=== PATIENT | female | born 1955 | race Caucasian/White ===

== ENCOUNTER → 2017-02-11 | Outpatient (CLI) | payer OTHER ==
--- NOTE | 2017-02-11 14:16 | KCIC ---
MRI lumbar spine without contrast 02/11/2017 INDICATION: Back pain COMPARISON: None available TECHNIQUE: Multiplanar, multisequence MR imaging of the lumbar spine is provided. FINDINGS: Alignment of the lumbar spine is normal. There is disc height loss at all levels of the lumbar spine. Modic type II endplate degenerative changes are identified at L2-L3, L3-L4 and L4-L5. Schmorl's nodes are identified involving the inferior endplate of T12, superior endplate of L1, superior and inferior endplate of L2, and superior endplates of L4 and L5. There is disc desiccation at all levels sparing L5-S1. Conus terminates at T12-L1. Distal cord signal is normal in all sequences. Visualized portions of the retroperitoneum are within normal limits. There is an infrarenal abdominal aortic ectasia measuring 2.6 cm. L2-L3: There is a disc bulge. Mild facet arthropathy with ligamentum flavum infolding. Moderate left and mild right neuroforaminal stenosis. Mild spinal canal stenosis. L3-L4: There is diffuse disc bulge. Mild right and moderate left facet arthropathy. Mild right and moderate left neural foraminal stenosis. Mild to moderate spinal canal stenosis, exacerbated by epidural lipomatosis. L4-L5: There is disc bulge. Moderate facet arthropathy with ligamentum flavum infolding. Severe left and moderate right neural foraminal stenosis. Mild spinal canal stenosis. L5-S1: Disc is normal in configuration. There is moderate facet arthropathy. No neuroforaminal or spinal canal stenosis. IMPRESSION: Moderate multilevel degenerative changes, as detailed above. There are varying degrees of neural foraminal and spinal canal stenosis secondary to disc bulges and facet arthropathy. Electronically signed by: Delores Almanzar MD (02/11/2017 2:13 PM) [facility]
== END | disposition home or self-care (01) ==
LOC: KCIC MRI 12:58
DX: M51.26 Other intervertebral disc displacement, lumbar region (principal); M51.46 Schmorl's nodes, lumbar region; M48.061 Spinal stenosis, lumbar region without neurogenic claudication
CPT/HCPCS: 72148

== ENCOUNTER → 2017-03-26 | Outpatient (CLI) | payer OTHER ==
--- NOTE | 2017-03-26 17:10 | RAD ---
2 view chest radiograph 03/26/2017 Clinical indication: Shortness of air. Comparison: None. Findings: Cardiac and mediastinal silhouettes are within normal limits. There is a tiny calcified granuloma in the right midlung. There is mild blunting of the costophrenic angles. No pneumothorax or focal consolidation. Impression: Mild blunting of the costophrenic angles which may represent pleural thickening or trace pleural effusions.
== END | disposition home or self-care (01) ==
LOC: RAD 11:56
PROVIDERS: ATTEND Internal Medicine Pulmonary Disease
DX: R91.8 Other nonspecific abnormal finding of lung field (principal)
CPT/HCPCS: 71020

== ENCOUNTER → 2018-01-22 | Outpatient (CLI) | payer OTHER ==
--- NOTE | 2018-01-22 16:19 | KCIC ---
THYROID ULTRASOUND: 01/22/2018 3:30 PM Indication: 62 years old Female. Swelling in the anterior neck. Comparison: None available. FINDINGS: Sonographic evaluation of the thyroid gland was performed utilizing grayscale and color Doppler. Right lobe: Normal in morphology and echotexture. Size: 4.3 x 1.3 x 1.1 cm Nodules: There is a 6 x 6 x 6 mm single circumscribed solid nodule in the mid to inferior right thyroid lobe, predominantly hypoechoic without significant internal echogenicity. The nodule is wider than it is tall. Left lobe: Normal in morphology and echotexture. Size: 4.3 x 1.4 x 1.5 cm Nodules: None. Isthmus: 4 mm, normal in appearance. IMPRESSION: There is a single solid moderately suspicious nodule in the mid to inferior right thyroid lobe measuring 6 x 6 x 6 mm. If there is persistent clinical concern, a follow-up ultrasound in one year may be of benefit. Electronically signed by: Delores Almanzar MD (01/22/2018 4:15 PM) [facility]1
== END | disposition home or self-care (01) ==
LOC: KCIC US 15:27
PROVIDERS: ATTEND Nurse Practitioner
DX: R22.1 Localized swelling, mass and lump, neck (principal)
CPT/HCPCS: 76536

== ENCOUNTER → 2018-10-31 | Outpatient (CLI) | payer OTHER ==
--- NOTE | 2018-10-31 17:42 | KCIC ---
Thyroid ultrasound HISTORY: Right thyroid nodule. COMPARISON: January 22, 2018 FINDINGS: Right lobe of the thyroid measures 4.4 x 1.5 x 1.3 cm. There is a nodule in the right lobe which measures 5 mm x 5 mm x 6 mm, unchanged in size and appearance since prior study. This has a complex solid appearance with internal vascularity. Smaller 4 x 3 x 4 mm right lobe nodule nodule seen just inferior to this one, is more hypoechoic and does not demonstrate vascularity. This may represent a cyst. Left lobe of the thyroid measures 4.1 x 2.0 x 1.4 cm. Left thyroid demonstrates homogeneous echotexture without a focal mass. IMPRESSION: 1. Vascular solid nodule in the right lobe of the thyroid appears stable as compared with previous exam. 2. There is a new smaller nodule in the more inferior right lobe, may represent a cyst. 3. Left lobe of the thyroid is unremarkable. Electronically signed by: Jose Rich MD (10/31/2018 5:38 PM) [email or web address]
== END | disposition home or self-care (01) ==
LOC: KCIC US 09:52
PROVIDERS: ATTEND Family Medicine
DX: E04.2 Nontoxic multinodular goiter (principal)
CPT/HCPCS: 76536

== ENCOUNTER → 2020-12-26 | Outpatient (CLI) | payer MEDICARE ==
--- NOTE | 2020-12-26 17:36 | CARD ---
MR#: [id number] Date of Study: 12/26/2020 Ordering Physician: BERTO VALDEZ, Referring Physician: BERTO VALDEZ, Tech: Moira Melara [facility] APPROVED REPORT EXAM: Two-dimensional and M-mode echocardiogram with Doppler and color Doppler. Other Information Quality : AverageHR: 97bpm Rhythm : NSR INDICATION COPD Dyspnea 2D DIMENSIONS RVDd3.2 (2.9-3.5cm)Left Atrium(2D)2.9 (1.6-4.0cm) IVSd0.9 (0.7-1.1cm)Aortic Root(2D)2.8 (2.0-3.7cm) LVDd4.0 (3.9-5.9cm)LVOT Diameter2.5 (1.8-2.4cm) PWd0.9 (0.7-1.1cm)LVDs2.5 (2.5-4.0cm) FS (%) 35.8 %SV45.3 ml Aortic Valve AoV Peak Irvin.117.1cm/sAoV VTI24.5cm AO Peak GR.5.5mmHgLVOT Peak Irvin.98.5cm/s AO Mean GR.3mmHgAVA (VMAX)3.99cm2 LEFT VENTRICLE The left ventricle is normal size. There is normal left ventricular wall thickness. The left ventricu lar systolic function is normal and the ejection fraction is within normal range. Estimated ejection fraction 55-60%. There is normal LV segmental wall motion. RIGHT VENTRICLE The right ventricle is normal size. There is normal right ventricular wall thickness. The right ventr icular systolic function is normal. ATRIA The left atrium size is normal. The right atrium size is normal. The interatrial septum is intact wit h no evidence for an atrial septal defect or patent foramen ovale as noted on 2-D or Doppler imaging. AORTIC VALVE The aortic valve is normal in structure and function. Doppler and Color Flow revealed no significant aortic regurgitation. There is no significant aortic valvular stenosis. MITRAL VALVE The mitral valve is normal in structure and function. There is no evidence of mitral valve prolapse. There is no mitral valve stenosis. Doppler and Color Flow revealed trace mitral valve regurgitation. TRICUSPID VALVE The tricuspid valve is normal in structure and function. Doppler and Color Flow revealed no tricuspid valve regurgitation noted. There is no tricuspid valve stenosis. PULMONIC VALVE The pulmonary valve is normal in structure and function. Doppler and Color Flow revealed no pulmonic valvular regurgitation. GREAT VESSELS The aortic root is normal in size. The ascending aorta is normal in size. The IVC is normal in size a nd collapses >50% with inspiration. PERICARDIAL EFFUSION There is no evidence of significant pericardial effusion. Critical Notification Critical Value: No <Conclusion> The left ventricle is normal size. The left ventricular systolic function is normal and the ejection fraction is within normal range. E stimated ejection fraction 55-60%. There is normal LV segmental wall motion. There is normal left ventricular wall thickness. There is no significant aortic valvular stenosis. Doppler and Color Flow revealed trace mitral valve regurgitation. Doppler and Color Flow revealed no tricuspid valve regurgitation noted. Signed by : Jack Vo MD Electronically Approved : 12/26/2020 17:36:26
== END ==
LOC: ECHO 09:56
DX: I50.9 Heart failure, unspecified (principal)
CPT/HCPCS: 93306

== ENCOUNTER → 2021-02-07 | Outpatient (CLI) | payer MEDICARE ==
[~2021-02-07] MED LIST: IOHEXOL 350 MG/ML 100 ML VIAL. IV ONE
--- NOTE | 2021-02-07 15:35 | RAD ---
EXAMINATION: CTA Chest With IV contrast INDICATION:65 years, Female, shortness of breath, post Covid. COMPARISON: None. TECHNIQUE: Spiral CTA was obtained from the jugular notch through the posterior costophrenic recess. 3-D MIPS, sagittal and coronal reformats were obtained. Exposure: One or more of the following individualized dose reduction techniques were utilized for thi s examination: 1. Automated exposure control 2. Adjustment of the mA and/or kV according to patient size 3. Use of iterative reconstruction technique. FINDINGS: LUNGS/PLEURA: Central airways are patent. Mild to moderate centrilobular pulmonary emphysema particul adrian in the upper lobes. Linear scarring versus subsegmental atelectasis in bibasilar lungs, lingula and right middle lobe. Calcified granuloma in the right lower lobe. No focal consolidation, pleural e ffusion or pneumothorax. There is a 3 mm pulmonary nodule in the left lower lobe (series 3 image 81). Few pulmonary nodules in the right middle and lower lobes, the largest measures 4 mm. MEDIASTINUM: No pathologic mediastinal or hilar adenopathy. Calcified mediastinal and right hilar lym ph nodes The thoracic aorta and pulmonary arteries are normal in caliber. No evidence of pulmonary em bolism. The heart is normal in size. No pericardial effusion. Severe calcified coronary atheroscleros is. The visualized thyroid and the esophagus are unremarkable. AXILLA/SOFT TISSUE: No supraclavicular or axillary adenopathy. Regional soft tissues are within zeynep l limits. UPPER ABDOMEN: Fluid density 1.0 cm lesion in the hepatic segment 4, suggesting of a cyst. Calcified granulomas in the spleen. BONES: No evidence of acute fractures or aggressive osseous lesions. Multilevel degenerative changes in the thoracic spine. IMPRESSION: 1. No evidence of pulmonary embolism. 2. Few scattered sub-5 mm pulmonary nodules in both lower and right middle lobes. Fleischner Society guidelines for management of incidental pulmonary nodule (Radiology 2017): Multipl e solid nodules < 6 mm: LOW-RISK patient (minimal or absent history of smoking and other known risk factors): No routine foll ow-up HIGH-RISK patient (history of smoking or other known risk factors): Optional CT at 12 months. Electronically signed by: Ebony Joseph MD (02/07/2021 3:32 PM) [id number]
--- NOTE | 2021-02-07 16:05 | RAD ---
Examination: Bilateral Lower Extremity Venous Doppler Ultrasound History: Bilateral lower extremity pain Comparison: None Procedure: Mar scale, color flow 2D and spectal waveform analysis images are obtained with and witho ut compression in the area of the common femoral vein, superficial femoral vein - femoral vein juncti on, main femoral vein (superficial femoral vein) and popliteal vein. Veins of the proximal calf are a lso imaged. Findings: There is normal duplex flow, color flow and compressibility of all visualized vein segments. No evide nce of deep venous thrombus is present. There is complex appearing cystic structure identified in the popliteal fossa measuring 1.2 x 1.6 x 3 .2 cm containing some echogenicity identified probably a complex popliteal cyst. Impression: 1. No evidence of DVT the bilateral lower extremity venous system. 2. Complex appearing 4.3 cm cystic structure in the popliteal fossa likely complex popliteal cyst. . Electronically signed by: Andrew De La Torre MD (02/07/2021 4:02 PM) [id number]
== END ==
LOC: US 13:38
DX: R91.8 Other nonspecific abnormal finding of lung field (principal); J43.2 Centrilobular emphysema; J84.10 Pulmonary fibrosis, unspecified; R59.0 Localized enlarged lymph nodes; I25.10 Atherosclerotic heart disease of native coronary artery without angina pectoris; M47.814 Spondylosis without myelopathy or radiculopathy, thoracic region; Z86.16 Personal history of COVID-19
CPT/HCPCS: 71275; 93970; Q9967